=== PATIENT | male | born 2000 | race Caucasian/White ===

== ENCOUNTER 2018-11-26 17:28 | Emergency (ER) | payer SELFPAY ==
[2018-11-26] MEDS ORDERED: NACL 0.9% 1000 ML 1,000 ML IV ONE (17:38)
[2018-11-26] MEDS ORDERED: GEODON IM ONE (17:38)
[2018-11-26 17:40] VITALS: BP 138/86
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
[2018-11-26 19:05] LABS: Basophils # (Auto) 0.1 K/mm3 (0.0-0.1); Basophils % (Auto) 0.4 % (0.0-1.8); Eosinophils % (Auto) 0.2 % (0.0-4.3); Lymphocytes # (Auto) 0.7 K/mm3 (1.2-5.4); Lymphocytes % (Auto) 4.9 % (13.4-35.0); Mean Corpuscular HGB Conc 33 % (32-34); Mean Corpuscular Volume 93 fl (84-94); Monocytes # (Auto) 0.9 K/mm3 (0.0-0.8); Monocytes % (Auto) 6.6 % (0.0-7.3); Platelet Count 231 K/mm3 (140-440); Red Blood Count 5.18 M/mm3 (3.65-5.03)
[2018-11-26 19:19] LABS: BUN/Creatinine Ratio 20; Blood Urea Nitrogen 20 mg/dL (9-20); Calcium 9.3 mg/dL (8.4-10.2); Hemolysis Index 25
[2018-11-26 19:23] LABS: Alanine Aminotransferase 32 units/L (7-56); Albumin 4.7 g/dL (3.9-5)
[2018-11-26 19:26] LABS: Bilirubin,Direct < 0.2 mg/dL (0-0.2)
[2018-11-26 20:55] LABS: Bilirubin,Urine NEG (Negative); Blood,Urine NEG (Negative); Color,Urine Yellow (Yellow); Hyaline Casts,Urine 3 /LPF; Mucus,Urine FEW /HPF; Urobilinogen,Urine < 2.0 mg/dL (<2.0)
[2018-11-26 21:04] LABS: Benzodiazepines Screen,Urine PRESUMPTIVE NEGATIVE; Cocaine Screen,Urine PRESUMPTIVE NEGATIVE; Methadone Screen,Urine PRESUMPTIVE NEGATIVE; Opiate Screen,Urine PRESUMPTIVE NEGATIVE
[2018-11-26 21:40] LABS: Amphetamine Screen,Urine PRESUMPTIVE POSITIVE; Cannabinoid Screen,Urine PRESUMPTIVE POSITIVE
--- NOTE | 2018-11-26 22:17 | Cat Scan Report ---
FINAL REPORT EXAM: CT HEAD/BRAIN WO CON HISTORY: Altered Mental Status COMPARISON: None available. TECHNIQUE: Axial images obtained skull base through vertex. FINDINGS: No acute intracranial hemorrhage, midline shift or pathologic extra axial fluid collection. Ventricle s and cisterns are normal in size and configuration for the patient's age. Gunn-white differentiation preserved. Calvarium grossly intact. Right periorbital soft tissue swelling. Mild mucosal thickening the visualized ethmoid air cells. Mastoid air cells are clear. IMPRESSION: No grossly acute intracranial abnormality. Right periorbital soft tissue swelling.
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
[2018-11-26] MEDS ORDERED: AUGMENTIN 875 MG PO ONE (23:55)
[2018-11-26] MEDS ORDERED: BOOSTRIX IM ONE (23:55)
== END 2018-11-27 00:48 ==
LOC: ED 17:28
DX: S05.11XA Contusion of eyeball and orbital tissues, right eye, initial encounter (principal); F17.200 Nicotine dependence, unspecified, uncomplicated; Z90.49 Acquired absence of other specified parts of digestive tract; Y04.0XXA Assault by unarmed brawl or fight, initial encounter; Y93.89 Activity, other specified; Y92.89 Other specified places as the place of occurrence of the external cause; Y99.8 Other external cause status
CPT/HCPCS: 36415; 70450; 70486; 80048; 80076; 80307; 81001; 82550; 85025; 86706; 86803; 87806; 90471; 90715; 96372; 99291; G0480; J3486; 80320